=== PATIENT | female | born 2005 | race Caucasian/White ===

== ENCOUNTER → 2025-01-12 | Day surgery (SDC) | payer OTHER ==
[~2025-01-12] VITALS: Ht 162.6 cm; Wt 66.1 kg
[~2025-01-12] MED LIST: ACETAMINOPHEN 1000MG/100ML IV BAG As Ordered ONE; LIDOCAINE 2% 100 MG/5 ML SDV (FOR ANES.) As Ordered ONE; LR 1,000 ML IV SCH; METO1TAB7 PO; MIDAZOLAM INJ 2 MG/2 ML VIAL As Ordered ONE; ONDANSETRON 4MG 2ML VIAL As Ordered ONE; ROCURONIUM BROMIDE 50MG/5ML VIAL As Ordered ONE; SUGAMMADEX SODIUM 500 MG/5 ML VIAL As Ordered ONE; dexAMETHasone 4 MG/ML 1 ML VIAL As Ordered ONE; dexmedeTOMIDine (4 MCG/ML) 200 MCG/50 ML BTL As Ordered ONE
[2025-01-12] MEDS: OXYMETAZOLINE 0.05% NASAL SPRAY As Ordered ONE (09:10)
[2025-01-12] MEDS: LIDOCAINE W/EPINEPHrine 1% 20 ML VIAL As Ordered ONE (09:11)
[2025-01-12] MEDS: LIDOCAINE 2% JELLY 6 ML SYRINGE As Ordered ONE (09:43)
[2025-01-12] MEDS: HYDROMORPHONE HCL 0.5 MG/0.5 ML SYRINGE IV PRN (10:15)
[2025-01-12] MEDS: ONDANSETRON 4MG 2ML VIAL IV PRN (10:19)
[2025-01-12 11:41] VITALS: BP 125/76; TEMP 97.5; O2SAT 98
== END | disposition home or self-care (01) ==
LOC: M SDC 07:34
PROVIDERS: ATTEND Otolaryngology
DX: J34.2 Deviated nasal septum (principal); J34.829 Nasal valve collapse, unspecified; J34.89 Other specified disorders of nose and nasal sinuses; R04.0 Epistaxis; F17.290 Nicotine dependence, other tobacco product, uncomplicated; R00.0 Tachycardia, unspecified; R00.2 Palpitations; Z79.899 Other long term (current) drug therapy; Z90.89 Acquired absence of other organs
CPT/HCPCS: 30520; 30901; 81025; J0131; J1100; J1171; J2250; J2405; J2765; J3010

== ENCOUNTER 2025-05-03 14:50 | Emergency (ER) | payer OTHER ==
[~2025-05-03 14:50] MED LIST changes: -ACETAMINOPHEN 1000MG/100ML IV BAG As Ordered ONE; -LIDOCAINE 2% 100 MG/5 ML SDV (FOR ANES.) As Ordered ONE; -LR 1,000 ML IV SCH; -MIDAZOLAM INJ 2 MG/2 ML VIAL As Ordered ONE; -ONDANSETRON 4MG 2ML VIAL As Ordered ONE; -ROCURONIUM BROMIDE 50MG/5ML VIAL As Ordered ONE; -SUGAMMADEX SODIUM 500 MG/5 ML VIAL As Ordered ONE; -dexAMETHasone 4 MG/ML 1 ML VIAL As Ordered ONE; -dexmedeTOMIDine (4 MCG/ML) 200 MCG/50 ML BTL As Ordered ONE
[2025-05-03 17:24] LABS: HCG, SERUM QUALITATIVE NEGATIVE (NEGATIVE)
[2025-05-03 17:55] VITALS: BP 121/69; TEMP 98.9; O2SAT 100
[2025-05-03] MEDS: ACETAMINOPHEN 500 MG TAB PO ONE (18:02)
== END 2025-05-03 18:16 | disposition home or self-care (01) ==
LOC: EDBD 14:50 → M ED 14:50
DX: S06.0X0A Concussion without loss of consciousness, initial encounter (principal); Y92.9 Unspecified place or not applicable; Y93.9 Activity, unspecified; Y99.0 Civilian activity done for income or pay; W50.0XXA Accidental hit or strike by another person, initial encounter; Z79.899 Other long term (current) drug therapy